=== PATIENT | female | born 1960 | race African-American/Black ===

== ENCOUNTER → 2016-06-01 | Outpatient (CLI) | payer BC ==
--- NOTE | ~2016-06-01 | US78 ---
[facility] A Service of [facility] RADIOLOGY TEXT RESULTS PATIENT: ASHIA HERNANDEZ LOCATION: CNIV : 64 UNIT #: [id number] AGE: [address]: FLOR WHYTE MD SEX: F ORDER DR: [id number] [facility] [address] [place], [place] [address] [id number] O MR#: [id number] Acc #: [id number] NAME: ASHIA HERNANDEZ : 1960 SEX: F STUDY DATE/TIME: 06/01/2016 9:48 UNIT: CNIV ROOM: STUDY DESCRIPTION: US Kidney Duplex Complete Attending Physician: Flor Whyte M.D. Ordering Physician: Flor Whyte M.D. Primary Care Physician: Flor Whyte M.D. MEDICAL IMAGING REPORT This report is preliminary unless electronic signature is present EXAM Bilateral renal artery ultrasound with Doppler. HISTORY Chronic hypertension. FINDINGS Ultrasound examination of both kidneys was performed including gonzalez-scale, color Doppler, and spectral Doppler evaluation of the renal arteries. There is no renal mass or hydronephrosis on gonzalez-scale imaging. Doppler evaluation of the renal arteries demonstrates peak systolic velocity in the right renal artery of 340 cm/sec with elevated right renal artery to aortic ratio of 3.4. Peak systolic velocity in the left renal artery is 194 cm/sec with left renal artery to aortic ratio of 1.9. Findings suggest a hemodynamically significant stenosis in the right renal artery. IMPRESSION 1. Findings are compatible with hemodynamically significant stenosis in the right renal artery with elevated peak systolic velocity in the mid right renal artery of 340 cm/sec and right renal artery to aortic ratio of 3.4. 2. No evidence of hemodynamically significant left renal artery stenosis. Dictated by... Jose Angel Johnson M.D. THIS IS AN ELECTRONICALLY VERIFIED REPORT Jose Angel Johnson M.D. at 06/01/2016 10:29 PM [facility] A Service of [facility] RADIOLOGY TEXT RESULTS PATIENT: ASHIA HERNANDEZ LOCATION: CNIV : 64 UNIT #: [id number] AGE: [address]: FLOR WHYTE MD SEX: F ORDER DR: MARY/omar TD: 06/01/2016 17:25 JOB #: [id number] MEDICAL IMAGING REPORT Page 1 of 1 COPY
== END | disposition home or self-care (01) ==
LOC: CNIV 09:06
DX: I10 Essential (primary) hypertension (principal)
CPT/HCPCS: 93975